=== PATIENT | female | born 1945 | race Caucasian/White ===

== ENCOUNTER 2017-02-06 08:27 | Outpatient (CLI) | payer MEDICARE, OTHER ==
[2017-02-06 12:38] LABS: #Basophils 0.1 thou/uL (0.0-0.2); #Eosinphils 0.5 thou/uL (0.0-0.7); #Lymphocytes 2.1 thou/uL (1.20-3.40); #Monocytes 0.4 thou/uL (0.11-0.59); #Neutrophils 4.4 thou/uL (1.40-6.50); %Basophils 1.2 % (0.0-1.0); %Eosinophils 6.5 % (0.0-10.0); %Lymphocytes 28.5 % (21.0-51.0); %Monocytes 5.7 % (0.0-10.0); %Neutrophils 58.1 % (42.0-75.0); Hemoglobin 12.9 g/dL (12.0-16.0); Mean Corpuscular HGB CONC 31.9 g/dL (32.0-36.0); Mean Corpuscular Hemoglobin 32.8 pg (27.0-31.0); Mean Platelet Volume 6.3 fL (7.4-10.4); Platelet Count 352 thou/uL (130-400); RBC Distribution Width 11.6 % (11.5-14.5); Red Blood Cell (RBC) Count 3.94 mill/uL (4.20-5.40); White Blood Cell (WBC) Count 7.5 thou/uL (4.8-10.8)
[2017-02-06 13:00] LABS: Anion Gap 15 mmol/L (10-20); BUN (Urea Nitrogen) 26 mg/dL (9.8-20.1); Calc. Creatinine Clearance 0 mL/min (70-130); Calcium 9.3 mg/dL (7.8-10.44); Carbon Dioxide 26 mmol/L (23-31); Chloride 107 mmol/L (98-107); Cholesterol 184 mg/dL (< 200 Desired); Estimated GFR-MDRD 59; Glucose 90 mg/dL (83-110); HDL Cholesterol 61 mg/dL (>60 Neg Risk); LDL Cholesterol, Calculated 109 mg/dL; Potassium 4.5 mmol/L (3.5-5.1); Sodium 143 mmol/L (136-145); Triglycerides 68 mg/dL (Less than 150)
== END 2017-02-06 08:28 | disposition home or self-care (01) ==
LOC: NAVSJIPCSP 08:27
PROVIDERS: ATTEND Internal Medicine
DX: D63.0 Anemia in neoplastic disease (principal); Z79.899 Other long term (current) drug therapy
CPT/HCPCS: 36415; 80048; 80061; 85025

== ENCOUNTER 2017-04-02 09:03 | Outpatient (CLI) | payer MEDICARE, OTHER ==
--- NOTE | 2017-04-02 11:55 | RAD ---
THORACIC SPINE RADIOGRAPHS THREE VIEWS INDICATIONS: Back pain. FINDINGS: There is mild superior endplate height loss of T12. There is also mild superior endplate irregulari ty incidentally noted at L2. Multilevel endplate degenerative change with marginal osteophyte forma tion and disk space narrowing throughout the thoracic spine present. There is left convexity curvat ure of the thoracic spine. Incidental note of interstitial opacities of each lung. Left chest port is present. IMPRESSION: Mild height loss involving T12 and L2. Referencing prior CT from 10/13/2015, the findings are stabl e. POS: [facility]
--- NOTE | 2017-04-02 11:57 | RAD ---
CERVICAL SPINE HISTORY: Neck pain. TECHNIQUE: A total of seven views obtained. FINDINGS: There are mild to moderate degenerative changes in the mid to lower cervical spine, with loss of dis k height noted at C5-C6 and at C6-C7. Posterior spondylitic changes at C5-C6 and C6-C7 are noted, a nd these changes mildly encroach into the spinal canal. Vertebral body height is preserved. The fo ramina appear patent. IMPRESSION: There are mild to moderate degenerative changes at C5-C6 and C6-C7, as described. POS: [facility]
== END 2017-04-02 09:04 | disposition home or self-care (01) ==
LOC: NAV RAD 09:03
PROVIDERS: ATTEND Internal Medicine
DX: M54.6 Pain in thoracic spine (principal); M54.2 Cervicalgia; M47.812 Spondylosis without myelopathy or radiculopathy, cervical region
CPT/HCPCS: 72050; 72072

== ENCOUNTER 2017-05-10 09:07 | Outpatient (CLI) | payer MEDICARE, OTHER ==
[2017-05-10 13:10] LABS: Cardiac Risk 3.7 (Less than 4.5)
== END 2017-05-10 09:08 ==
LOC: NAVSJIPCSP 09:07
PROVIDERS: ATTEND Internal Medicine
DX: Z51.81 Encounter for therapeutic drug level monitoring (principal); Z79.899 Other long term (current) drug therapy
CPT/HCPCS: 36415; 80061

== ENCOUNTER 2017-10-25 11:42 | Outpatient (CLI) | payer MEDICARE, OTHER ==
--- NOTE | 2017-10-25 12:17 | RAD ---
TWO VIEWS RIGHT HIP: History: Right hip pain for one month. FINDINGS: Two views right hip shows no evidence of acute fracture or dislocation. No degenerative changes are s een. Mild soft tissue swelling is present. IMPRESSION: No significant right hip abnormality. POS: [facility]
--- NOTE | 2017-10-25 13:48 | RAD ---
THREE VIEWS LEFT HIP: DATE: 10/25/17. HISTORY: Bilateral hip pain. No history of injury. COMPARISON: None available. FINDINGS: There is narrowing of the left hip joint space and there is subchondral sclerosis and subchondral cys tic changes involving the acetabulum and left femoral head most compatible with osteoarthritis. Ther e is no fracture or dislocation seen. Degenerative changes are present at the pubic symphysis. Vasc ular calcifications overlie the pelvis. IMPRESSION: Left hip osteoarthritis with degenerative changes involving the pubic symphysis. POS: [facility]
== END 2017-10-25 11:43 | disposition home or self-care (01) ==
LOC: NAV RAD 11:42
PROVIDERS: ATTEND Internal Medicine
DX: M25.551 Pain in right hip (principal); M25.552 Pain in left hip; M70.62 Trochanteric bursitis, left hip; M70.61 Trochanteric bursitis, right hip; M16.12 Unilateral primary osteoarthritis, left hip

== ENCOUNTER 2018-02-14 14:04 | Emergency (ER) | payer MEDICARE, OTHER ==
[2018-02-14] MEDS ORDERED: Penicillin V Potassium 250 MG TAB ONE (14:36)
== END 2018-02-14 14:45 | disposition home or self-care (01) ==
LOC: NAV ERS 14:04
DX: K02.9 Dental caries, unspecified (principal); I10 Essential (primary) hypertension; M19.90 Unspecified osteoarthritis, unspecified site; Z85.118 Personal history of other malignant neoplasm of bronchus and lung; Z87.891 Personal history of nicotine dependence; Z79.52 Long term (current) use of systemic steroids; Z79.899 Other long term (current) drug therapy
CPT/HCPCS: 99283

== ENCOUNTER 2018-11-30 09:29 | Emergency (ER) | payer MEDICARE, OTHER ==
[2018-11-30] MEDS ORDERED: AMOXicillin 250 MG CAP ONE (10:16)
== END 2018-11-30 10:33 | disposition home or self-care (01) ==
LOC: NAV ERS 09:29
DX: R22.0 Localized swelling, mass and lump, head (principal); I10 Essential (primary) hypertension; M19.90 Unspecified osteoarthritis, unspecified site; Z87.891 Personal history of nicotine dependence; Z79.899 Other long term (current) drug therapy
CPT/HCPCS: 99283